=== PATIENT | male | born 1950 ===

== ENCOUNTER 2016-11-12 06:28 | Day surgery (SDC) | payer MEDICARE, OTHER ==
[2016-11-10 10:09] VITALS: BMI 23.1
[2016-11-12 07:29] VITALS: RESP 20
[2016-11-12 07:32] LABS: INR 1.05 (0.93-1.08); PARTIAL THROMBOPLASTIN TIME 28.8 Seconds (23.7-30.8)
[2016-11-12 07:34] LABS: BASO # 0.02 K/mm3 (0.0-2.0); BASO % 0.3 % (0.0-3.0); EOS # 0.6 (0.0-0.7); EOS % 10.5 % (1.5-5.0); GRAN % 49.2 % (50.0-68.0); HEMATOCRIT 38.5 % (42.0-52.0); LYMPH # 1.8 (1.2-3.4); LYMPH % 29.8 % (22.0-35.0); MEAN CELL VOLUME 94.6 fl (80.0-105.0); MEAN CORPUSCULAR HEMOGLOBIN 32.2 pg (25.0-35.0); MEAN PLATELET VOLUME 9.3 fl (7.0-11.0); MONO # 0.6 (0.1-0.6); MONO % 10.2 % (1.0-6.0); WHITE BLOOD COUNT 6.1 10^3/ul (4.5-11.0)
[2016-11-12 07:42] LABS: BLOOD UREA NITROGEN 15 mg/dL (7-21); CALCIUM 9.4 mg/dL (8.4-10.5); CARBON DIOXIDE 27 mmol/L (21-33); CHLORIDE 105 mmol/L (98-107); CHOLESTEROL 203 mg/dL (130-200); GFR AFRICAN-AMERICAN > 60; GLUCOSE,RANDOM 86 mg/dL (70-110); POTASSIUM 4.4 mmol/L (3.6-5.0); SODIUM 142 mmol/L (132-148)
[2016-11-12] MEDS ORDERED: Lidocaine 2% Inj (20ml) ONE (07:42)
[2016-11-12] MEDS ORDERED: Iohexol 350mgl/ml 50 ML ONE (07:43)
[2016-11-12] MEDS ORDERED: Midazolam 2 MG/2 ML VIAL ONE (10:14)
[2016-11-12] MEDS ORDERED: Nitroglycerin 50mg in D5W 50 MG/250 ML BOTTLE IV ONE (10:27)
[2016-11-12] MEDS ORDERED: Adenosine 90 mg/30mL IV ONE (10:42)
[2016-11-12] MEDS ORDERED: Iohexol 350 MG/100 ML VIAL ONE (10:49)
[2016-11-12] MEDS ORDERED: Bacitracin 500 Units/gm Oint Foilpak UD TOP ONE (11:29)
--- NOTE | 2016-11-12 11:36 | CARD ---
APPROVED REPORT EKG Measurement Heart [id number] ND [id number] <Conclusion> Sinus bradycardia Otherwise normal ECG
[2016-11-12 12:42] VITALS: BP 127/68; PULSE 46; TEMP 97.9; O2SAT 97
--- NOTE | 2016-11-12 14:38 | CARDCATH ---
PROCEDURE DATE: 11/12/2016 INDICATIONS: Mr. Zepeda is a 66-year-old male with past medical history significant for hypertension, diet controlled diabetes, hyperlipidemia, history of stenting of the circumflex coronary artery, who was referred to ca for evaluation of symptoms off angina and equivocal nuclear stress test. The patient underwent cardiac catheterization for evaluation of above symptoms. PROCEDURES PERFORMED: 1. Left heart catheterization with selective left and right coronary angiogram, left ventriculogram, FFR assessment of left anterior descending artery lesion. 2. IVUS interrogation of left main stenosis and left anterior descending artery stenosis. 3. 6-Luxembourger right radial arterial access, wristband for hemostasis. TECHNIQUES OF PROCEDURE: After obtaining informed consent, the patient was brought to the cardiac cath suite in post-absorptive non-sedated state. The patient was prepped and draped in the usual sterile fashion. A 2% lidocaine was used for infiltration of anesthesia, using modified Seldinger technique, 6-Luxembourger sheath was introduced into the right radial artery. Over a J-wire, a JR4 diagnostic catheter was used to engage the right coronary system and angiograms were obtained in three orthogonal views. Subsequently over a J-wire, the JR4 catheter was exchanged to a JL4 diagnostic catheter. Angiograms of the left coronary systems were obtained in different orthogonal views. Over a J-wire, the JL4 was exchanged to an angled pigtail catheter, which was advanced into the LV and LV gram was obtained in the right anterior oblique view. HEMODYNAMIC FINDINGS: Left ventricular end-diastolic pressure was 17 to 20 mmHg, left ventricular ejection fraction low normal with an EF of 50 to 59%. CORONARY ANATOMY: Left main large size vessel bifurcates into left anterior descending and left circumflex coronary artery. Left circumflex coronary artery is a large size vessel, which has patent stent with [id number] in stent restenosis, gives off a large obtuse marginal branch, left anterior descending artery severely calcified with 60% proximal LAD lesion at the bifurcation of the diagonal and the septal branch, distal LAD has nonobstructive 50% stenosis, right coronary artery severely calcified with mid nonobstructive 50% stenosis. TECHNIQUES AND INTERVENTION: After reviewing the above angiographic findings, it was decided to further interrogate the mid proximal LAD lesion and FFR of the left anterior descending artery lesion was done, which came back at 0.73. An IVUS interrogation showed vessel was 360 degree calcified. IMPRESSION: Severe proximal LAD calcified lesion. RECOMMENDATION: The patient is to be kept on dual antiplatelet therapy. Guideline directed therapy for CAD with aspirin, beta-stephen, statins and nitrates. The patient is to undergo staged intervention of proximal LAD with atherectomy in one week's time. The patient's case was discussed with the patient's family and patient would be scheduled at an outside facility, preferably at [facility]. Thank you Dr. Serrano and Kalin for letting me participate in the care of your patient. Hakeem Robison MD cc: Sonny Serrano MD and James Gagnon MD.
[2016-11-12] MEDS ORDERED: Bacitracin 500 Units/gm Oint Foilpak UD ONE (15:10)
== END 2016-11-12 17:00 | disposition home or self-care (01) ==
LOC: CATH 06:28
PROVIDERS: ATTEND Internal Medicine Interventional Cardiology
DX: I25.119 Atherosclerotic heart disease of native coronary artery with unspecified angina pectoris (principal); E11.9 Type 2 diabetes mellitus without complications; E78.5 Hyperlipidemia, unspecified; Z95.5 Presence of coronary angioplasty implant and graft; T82.858A Stenosis of other vascular prosthetic devices, implants and grafts, initial encounter; I11.9 Hypertensive heart disease without heart failure; E78.00 Pure hypercholesterolemia, unspecified; M19.90 Unspecified osteoarthritis, unspecified site; K21.9 Gastro-esophageal reflux disease without esophagitis; E55.9 Vitamin D deficiency, unspecified; Z85.038 Personal history of other malignant neoplasm of large intestine; Z92.21 Personal history of antineoplastic chemotherapy; Z90.49 Acquired absence of other specified parts of digestive tract; J44.9 Chronic obstructive pulmonary disease, unspecified; I48.91 Unspecified atrial fibrillation; D64.9 Anemia, unspecified; Z82.49 Family history of ischemic heart disease and other diseases of the circulatory system; Z80.8 Family history of malignant neoplasm of other organs or systems; Z87.891 Personal history of nicotine dependence; Z88.6 Allergy status to analgesic agent; Z91.048 Other nonmedicinal substance allergy status
CPT/HCPCS: 36415; 80048; 80061; 85025; 85175; 85610; 85730; 86850; 86900; 92978; 93005; 93458; 93571; 99152; 99153; C1753; C1769 ×2; C1887; J0153; J1644 ×2; J2250; J3010; J7040; Q9967 ×2

== ENCOUNTER 2017-03-02 13:17 | Day surgery (SDC) | payer OTHER, MEDICARE ==
[2017-02-25 07:30] VITALS: BMI 22.1
[2017-03-02] MEDS ORDERED: Lidocaine 2% Inj (20ml) ONE (13:30)
[2017-03-02] MEDS ORDERED: Adenosine 90 mg/30mL IV ONE (13:30)
[2017-03-02] MEDS ORDERED: Midazolam 2 MG/2 ML VIAL ONE ×3 (13:31→15:58)
[2017-03-02] MEDS ORDERED: Iodixanol 320 MG/ML 200 ML BOTTLE IV ONE (13:31)
[2017-03-02] MEDS ORDERED: HEPARIN SODIUM/NS 2,000 ML IV ONE (13:31)
[2017-03-02] MEDS ORDERED: Albuterol-Ipratrop 3 mg / 0.5 (3 ml) UD IH STA (14:51)
[2017-03-02] MEDS ORDERED: Sodium Chloride 0.9% 1,000 ML IV SCH (18:15)
[2017-03-02 19:52] LABS: TROPONIN I 0.06 ng/mL
[2017-03-02 22:47] VITALS: BP 146/76; PULSE 60; RESP 16
--- NOTE | 2017-03-03 07:17 | PROCN ---
DATE: 03/02/2017. INDICATIONS: Mr. Zepeda is a 67-year-old male with past medical history significant for hypertension, diabetes, hyperlipidemia, who presented to [facility] with complaints of shortness of breath and COPD exacerbation. During hospitalization, he had an [employer] with an episode of chest pain and diaphoresis, for which he was transferred ICU and had mildly positive troponin. Because of prior history of CAD and stenting of a heavily calcified left anterior descending artery, he was brought over to the [facility] for evaluation of his LAD stent. PROCEDURE PERFORMED: Left heart catheterization with selective left and right coronary angiogram, left ventriculogram, 6-Omani right femoral artery access, FFR interrogation of left anterior descending artery, physiologically nonsignificant at 0.83, Mynx closure device for hemostasis. ANGIOGRAPHIC FINDINGS: Left main, large sized vessel, bifurcates into left anterior descending and left circumflex coronary artery. Left anterior descending artery had a long segment proximal stent which was patent. Post stent after the diagonal, there was 50% stenosis. Left circumflex was a medium-sized vessel, gives off branch of the mid stent with a post-stent 50% stenosis. Right coronary artery was a large-sized vessel, right dominant circulation gives rise PDA and PLV branches with mild nonobstructive disease. INTERVENTION: After reviewing angiographic findings, it was deemed imperative to further interrogate the LAD stent. FFR of the LAD was done that showed FFR was 0.82 which was physiologically nonsignificant. IMPRESSION: Patent LAD stent, nonsignificant FFR of the LAD. RECOMMENDATIONS: Continue aggressive medical management and risk factor modification. The patient will be discharged back to [facility] in 6 hours. Hakeem Robison MD
--- NOTE | 2017-03-03 10:50 | CARD ---
APPROVED REPORT EKG Measurement Heart [id number] ID [id number] <Conclusion> Normal sinus rhythm Normal ECG
== END 2017-03-02 23:22 | disposition short-term general hospital (02) ==
LOC: CATH 13:17 → 2RSO 16:57 → CATH 23:22
PROVIDERS: ATTEND Internal Medicine Interventional Cardiology
DX: I25.10 Atherosclerotic heart disease of native coronary artery without angina pectoris (principal); J44.1 Chronic obstructive pulmonary disease with (acute) exacerbation; E11.9 Type 2 diabetes mellitus without complications; I10 Essential (primary) hypertension; E78.5 Hyperlipidemia, unspecified; Z95.5 Presence of coronary angioplasty implant and graft
CPT/HCPCS: 82550; 83615; 84484; 93458; 93571; 99152; 99153; C1760; C1769 ×2; C1887; C2629; J0153; J1644 ×2; J2250; J3010; J7030; J7040